=== PATIENT | female | born 1955 | race Caucasian/White ===

== ENCOUNTER 2018-05-12 11:56 | Emergency (ER) | payer OTHER ==
[~2018-05-12] VITALS: Ht 170.2 cm; Wt 78.9 kg
[~2018-05-12 11:56] MED LIST: ACETAMINOPHEN/O1 TA3 PO; ADV100/50 INH; AUG500 PO; COL100 PO; HEP5I SC; HYDROCODONE/ACE1 TA2; IPRATROPIUM BROM3 M2 HHN; LAMOTRIGINE25 MG PO; NORCO1 TA2 PO; OMEPRAZOLE; PULMICORT0.5 MG/2 M IH; ROB750 PO; SEROQUEL25 MG PO; SERTRALINE HYDR50 M1 PO; VENTOLIN H0.09 MG/A1 INH; [UNRECOGNIZED DRUG - OTHER]
[2018-05-12 14:28] VITALS: BP 138/75
== END 2018-05-12 14:28 | disposition home or self-care (01) ==
LOC: ED 11:56
DX: H10.13 Acute atopic conjunctivitis, bilateral (principal); J44.9 Chronic obstructive pulmonary disease, unspecified; G89.29 Other chronic pain; M54.9 Dorsalgia, unspecified

== ENCOUNTER 2019-04-05 22:56 | Emergency (ER) | payer OTHER ==
[~2019-04-05] VITALS: Ht 165.1 cm; Wt 77.6 kg
[2019-04-05 23:02] VITALS: Ht 165.1 cm; Wt 77.6 kg
[2019-04-05 23:40] VITALS: BP 139/95
== END 2019-04-05 23:40 | disposition other institution (70) ==
LOC: ED 22:56
DX: F10.129 Alcohol abuse with intoxication, unspecified (principal); J44.9 Chronic obstructive pulmonary disease, unspecified; G89.29 Other chronic pain; M19.90 Unspecified osteoarthritis, unspecified site; K21.9 Gastro-esophageal reflux disease without esophagitis; F41.9 Anxiety disorder, unspecified; Y90.0 Blood alcohol level of less than 20 mg/100 ml; Z98.890 Other specified postprocedural states